=== PATIENT | female | born 1985 | race African-American/Black ===

== ENCOUNTER 2017-05-10 10:35 | Emergency (ER) | payer OTHER ==
[~2017-05-10] VITALS: Ht 160 cm; Wt 95.3 kg
[2017-05-10 11:33] LABS: ABSOLUTE NEUTROPHILS 4.4 thou/uL (1.4-8.2); BASOPHILS 0.4 % (0.0-2.0); EOSINOPHILS 0.5 % (0.0-3.0); HEMATOCRIT 38.5 % (37.0-47.0); HEMOGLOBIN 12.9 gm/dL (12.0-15.0); LYMPHOCYTES 35.3 % (24.0-44.0); MCH 31.6 pg (26.0-34.0); MCHC 33.6 g/dL (28.0-37.0); MONOCYTES 6.2 % (1.0-8.0); PLATELET COUNT 276 thou/uL (150-400); POLYS 57.6 % (36.0-66.0); RBC 4.09 mil/uL (4.20-5.00); RDW 13.9 % (10.5-14.5); WBC 7.6 thou/uL (4.0-11.0)
[2017-05-10 11:34] LABS: MANUAL DIFF NO
[2017-05-10 11:50] LABS: URINE BILIRUBIN NEGATIVE (Negative); URINE BLOOD NEGATIVE (Negative); URINE COLOR YELLOW; URINE GLUCOSE-RANDOM* NEGATIVE (Negative); URINE KETONES NEGATIVE (Negative); URINE NITRITE NEGATIVE (Negative); URINE PROTEIN (DIPSTICK) NEGATIVE (Negative); URINE UROBILINOGEN 0.2 E.U./dl (0.2-1.0)
[2017-05-10] MEDS ORDERED: ACETAMINOPHEN-1 EAC1 PO (12:34)
[2017-05-10 12:48] VITALS: BP 134/89
[2017-05-11 17:10] LABS: CHLAMYDIA TRACHOMATIS-PCR Negative (Negative); NEISSERIA GONORRHEA-PCR Negative (Negative)
== END 2017-05-10 12:58 | disposition home or self-care (01) ==
LOC: ER 10:35
PROVIDERS: Physician Assistant
DX: O26.891 Other specified pregnancy related conditions, first trimester (principal); K02.9 Dental caries, unspecified; R10.2 Pelvic and perineal pain; Z20.2 Contact with and (suspected) exposure to infections with a predominantly sexual mode of transmission; Z3A.12 12 weeks gestation of pregnancy; Z88.0 Allergy status to penicillin

== ENCOUNTER 2019-08-18 21:56 | Emergency (ER) | payer OTHER ==
[~2019-08-18] VITALS: Ht 160 cm; Wt 97.5 kg
[~2019-08-18 21:56] MED LIST: ACETAMINOPHEN-1 EAC1 PO
[2019-08-18 22:15] VITALS: BP 104/67
[2019-08-18] MEDS ORDERED: MOBIC15 MG PO (22:31)
--- NOTE | 2019-08-19 14:26 | EKG ---
[address] [place] [address] ELECTROCARDIOGRAM REPORT Name: HERNANDEZ NINA Room #: [facility] MIGDALIA Rico#: [id number] Admission: 08/18/19 Attend Phys: Discharge: 08/18/19 Date of : 89 Report #: [id number] THIS REPORT FOR: //name// [facility] ED Test Date: 2019-08-18 Test Time: 22:02:10 Pat Name: HERNANDEZ NINA Department: Room: Gender: F Supervisor [employer]: NINI : 1985 Requested By: Carmen Vogel Order Number: [id number] MD: Rei Arizmendi Measurements Intervals Bond Rate: 67 P: 74 OR: 192 QRS: 20 QRSD: 83 T: 17 QT: 404 QTc: 427 Interpretive Statements Sinus rhythm No previous ECG available for comparison Electronically Signed On 08-19-2019 14:25:26 [employer] by Rei Arizmendi [email or web address] <ELECTRONICALLY SIGNED> By: Rei Arizmendi MD 08/19/19 1425 220 01 Rei Arizmendi MD /SILVERIO
== END 2019-08-18 22:54 | disposition home or self-care (01) ==
LOC: ER 21:56
DX: M54.10 Radiculopathy, site unspecified (principal); J45.909 Unspecified asthma, uncomplicated; Z88.0 Allergy status to penicillin